=== PATIENT | female | born 1950 | race Caucasian/White ===

== ENCOUNTER → 2021-03-28 | Emergency (ER) | payer OTHER ==
[~2021-03-28] VITALS: Ht 154.9 cm; Wt 78.0 kg
[~2021-03-28] MED LIST: TOBRAMYCIN-DEXAM5 ML OP
== END | disposition home or self-care (01) ==
LOC: ER 17:40
DX: T26.02XA Burn of left eyelid and periocular area, initial encounter (principal); X08.8XXA Exposure to other specified smoke, fire and flames, initial encounter; Y93.89 Activity, other specified; Y92.89 Other specified places as the place of occurrence of the external cause; Y99.8 Other external cause status